=== PATIENT | male | born 2000 | race Two or more races ===

== ENCOUNTER 2022-07-12 19:16 | Emergency (ER) | payer OTHER ==
[2022-07-12 19:38] VITALS: BP 132/88
[2022-07-12] MEDS ORDERED: SULFAMETH/TRIMETH DS 800/160 MG TABLET PO STA (19:55)
--- NOTE | 2022-07-12 19:56 | ED Physician Documentation ---
PD HPI WOUND RECHECK - Stated complaint Stated Complaint: SORE ON HIP - Chief complaint Chief Complaint: Wound - Histroy obtained from History obtained from: Patient - Additional information Additional information: 21-year-old developed a pointed abscess on the left hip about 3 days ago which he popped but is still there. No fevers or chills. 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 Review of Systems Constitutional: denies: Fever, Chills Throat: reports: Reviewed and negative Respiratory: reports: Reviewed and negative PD PAST MEDICAL HISTORY - Past Medical History Respiratory: Asthma - Past Surgical History Past Surgical History: Yes HEENT: Other - Present Medications Home Medications: Ambulatory Orders Medication Instructions Recorded Confirmed Sulfamethox/Trimeth 800/160 1 each PO BID #14 tablet 07/12/22 [Bactrim Ds 800/160] - Allergies Allergies/Adverse Reactions: Allergies Allergy/AdvReac Type Severity Reaction Status Date / Time No Known Drug Allergies Allergy Verified 07/12/22 19:34 - Social History Does the pt smoke?: Yes Smoking Status: Current every day smoker Does the pt have substance abuse?: No - Immunizations Immunizations are current?: Yes - POLST Patient has POLST: No PD ED PE NORMAL - Vitals Vital signs reviewed: Yes - General General: Alert and oriented X 3, No acute distress - Derm Derm: Other (Small pointed abscess over the left hip. Mild surrounding cellulitis.) - Neuro Neuro: Alert and oriented X 3, Normal speech Results - Vitals Vitals: Vital Signs - 24 hr 07/12/22 19:35 Temperature 37.1 C Heart Rate 91 Respiratory 17 Rate Blood Pressure 132/88 H O2 Saturation 99 Oxygen O2 Source Room air Procedures - Abscess I&D (location) Left hip Preparation: Lidocaine 1%, With epi Incision: Incised with scalpel, Purulent drainage, Loculations broken, Culture obtained Other: Pt tolerated well, Dressing applied Departure - Departure Disposition: 01 Home, Self Care Clinical Impression: Abscess Condition: Good Record reviewed to determine appropriate education?: Yes Instructions: ED Abscess IandD Prescriptions: Sulfamethox/Trimeth 800/160 [Bactrim Ds 800/160] 1 each PO BID #14 tablet Comments: We are performing a wound culture, the results should be done in 48-72 hours. If antibiotic change is necessary we will call you. Return if worse in the meantime, especially if you develop increased pain, fevers, cannot keep down the medication. Otherwise follow-up with your physician in approximately 2-3 days.
== END 2022-07-12 20:06 | disposition home or self-care (01) ==
LOC: ED 19:16
DX: L02.416 Cutaneous abscess of left lower limb (principal); F17.200 Nicotine dependence, unspecified, uncomplicated
CPT/HCPCS: 10060; 87070; 87181; 87205; 99283; A9270

== ENCOUNTER 2022-09-01 13:13 | Emergency (ER) | payer OTHER ==
--- NOTE | 2022-09-01 13:24 | ED Physician Documentation ---
PD HPI SKIN - Stated complaint Stated Complaint: ABSCESS ON THE NECK - Chief complaint Chief Complaint: Wound - History obtained from History obtained from: Patient - History of Present Illness Timing - onset: How many days ago (several) Timing - duration: Days Timing - details: Gradual onset, Still present (anterior left side neck) Location: Neck Quality / character: Painful, Swelling, Draining (it was draining slightly but then stopped.) Associated symptoms: Other (denies pain with swallowling). No: Fever, N/V/D Similar symptoms before: Diagnosis ( Two drained on their own and one was incised. has had 3 other abscesses in the past 2 months - other side of neck, scalp, and lower abd wall.) Review of Systems Constitutional: denies: Fever, Chills Throat: denies: Oral lesions / sores, Sore throat Neurologic: denies: Focal weakness, Numbness PD PAST MEDICAL HISTORY - Past Medical History Respiratory: Asthma Endocrine/Autoimmune: None - Past Surgical History Past Surgical History: Yes HEENT: Other - Present Medications Home Medications: Ambulatory Orders Medication Instructions Recorded Confirmed Albuterol Sulf [Ventolin Hfa 1 - 2 puffs INH Q4HR PRN 09/01/22 09/01/22 Inhaler] Cetirizine [ZyrTEC] 10 mg PO DAILY PRN 09/01/22 09/01/22 Chlorhexidine Gluconate [Hibiclens] 15 ml TP DAILY #236 ml 09/01/22 Ibuprofen [Motrin] 600 mg PO TID PRN #25 tab 09/01/22 Mupirocin 2% Oint [Bactroban 2% 1 applic TOP TID #15 gm 09/01/22 Oint] Sulfamethox/Trimeth 800/160 1 each PO BID #14 tablet 09/01/22 [Bactrim Ds 800/160] - Allergies Allergies/Adverse Reactions: Allergies Allergy/AdvReac Type Severity Reaction Status Date / Time egg Allergy Hives Verified 09/01/22 13:21 - Social History Does the pt smoke?: Yes Smoking Status: Current every day smoker Does the pt have substance abuse?: No - Immunizations Immunizations are current?: Yes - POLST Patient has POLST: No PD ED PE NORMAL - Vitals Vital signs reviewed: Yes - General General: Alert and oriented X 3, No acute distress, Well developed/nourished - Neck Neck: Supple, no meningeal sign, Other (left anterior neck to left of cricoid area with subcut lumb with some fluctuance that is moderately tendere. It appears to almost a pointing. Redness of the skin in the area. No pulse underneath the area. ) Results - Vitals Vitals: Oxygen O2 Source Room air - Labs Labs: Microbiology 09/01/22 14:03 Wound Culture - Final Abscess Methicillin Resist S. Aureus Procedures - Abscess I&D (location) left anterior neck 2 cm Preparation: Chlorhexadine, Lidocaine 1%, With epi Incision: Incised with scalpel, Purulent drainage (but only about 2-3 ml), Irrigated, Culture obtained PD Medical Decision Making - ED course Complexity details: considered differential (recurring abscesses in different areas concerning for chronic staph carrier, so treat current MRSAS,, but also given hibiclens and mupirocin.), d/w patient Departure - Departure Disposition: 01 Home, Self Care Clinical Impression: Neck abscess Condition: Stable Record reviewed to determine appropriate education?: Yes Instructions: ED Abscess IandD Prescriptions: Sulfamethox/Trimeth 800/160 [Bactrim Ds 800/160] 1 each PO BID #14 tablet Mupirocin 2% Oint [Bactroban 2% Oint] 1 applic TOP TID #15 gm Chlorhexidine Gluconate [Hibiclens] 15 ml TP DAILY #236 ml Ibuprofen [Motrin] 600 mg PO TID PRN #25 tab PRN Reason: Pain Comments: We did get a little bit of purulence out though there is still a bit of swelling in there. It feels like the material it is a little bit thicker and I would expect it to drain through the day in combination with warm moist compresses to the area. There is a certainly good portal for the material to drain with the incision at this time. Bactrim antibiotic twice daily for the next week to help with the infection. Recheck if this is not improving quite well over the next 2 to 3 days. There may be some residual firmness and inflammation in the area that could take 2 or 3 weeks to resolve. To try to reduce the chance for repeated infections, we will try to decrease the amount of germs generally on the body surface and also when particular hiding spots like the nailbeds and nostrils. Use the chlorhexidine body wash and a septic daily with your showers and use it just from head to toe to reduce the bacteria on the surface of the skin. Use the mupirocin antibiotic ointment lightly on the fingernail beds and also with a Q-tip just very gently in the nostrils daily to reduce the chance for recurrent abscesses. Stay well-hydrated. I sent your prescriptions to [facility] in [place]. For pain and discomfort you can use ibuprofen 3 times daily for the next several days to week. Add Tylenol every 4 hours if needed. Follow-up back here if not improving well over the next several days or walk-in clinic etc. Discharge Date/Time: 09/01/22 14:16
[2022-09-01] MEDS ORDERED: SULFAMETH/TRIMETH DS 800/160 MG TABLET PO STA (13:49)
[2022-09-01] MEDS ORDERED: IBUPROFEN 600 MG TABLET PO STA (13:50)
[2022-09-01] MEDS ORDERED: ACETAMINOPHEN 325 MG TABLET PO STA (13:50)
[2022-09-01 14:17] VITALS: BP 130/80
--- NOTE | 2022-09-03 11:36 | ED Physician Documentation ---
ED Addendum - Addendum Addendum: 09/03/22 11:35 Seen by my colleague 2 days ago for a neck abscess which was drained. Started on Bactrim. Subsequent culture has grown MRSA. Sensitive to the antibiotic. I have asked nursing staff to notify patient of the MRSA finding. Also to advise chlorhexidine body wash for 2 weeks.
== END 2022-09-01 14:16 | disposition home or self-care (01) ==
LOC: ED 13:13
DX: L02.11 Cutaneous abscess of neck (principal); F17.200 Nicotine dependence, unspecified, uncomplicated
CPT/HCPCS: 10060; 87070; 87181; 87205; 99283; A9270

== ENCOUNTER 2022-10-02 04:52 | Emergency (ER) | payer OTHER ==
--- NOTE | 2022-10-02 05:09 | ED Physician Documentation ---
History of Present Illness - Stated complaint Stated Complaint: LT SIDE INFECTION - Chief complaint Chief Complaint: General - History obtained from History obtained from: Patient - Additonal information Additional information: HPI from patient. Patient complains of atraumatic focal pain swelling and redness on the left lateral aspect of his chest initially noticed 2 or 3 days ago. The discomfort a nd area of affect both slowly increased since he first noticed the lesion. He has had very similar lesions on other parts of his body for which she has come to this ER as well as other ERs; these lesions in the past have been abscesses that have required/benefit from incision and drainage. He does have 2 previous visits to this emergency department for I&D, in which the culture on both of those visits grew out MRSA. Patient denies fever. Patient says that earlier today, he applied pressure to the lesion ("squeezed it", per patient) And was able to express pus. This resulted in the lesion becoming more flat and less painful. Review of Systems Skin: reports: Lesions PD PAST MEDICAL HISTORY - Past Medical History Cardiovascular: None Respiratory: Asthma Neuro: None Endocrine/Autoimmune: None GI: None : None HEENT: None Psych: None Musculoskeletal: None Derm: Eczema - Past Surgical History Past Surgical History: Yes HEENT: Other - Present Medications Home Medications: Ambulatory Orders Medication Instructions Recorded Confirmed Albuterol Sulf [Ventolin Hfa 1 - 2 puffs INH Q4HR PRN 09/01/22 09/01/22 Inhaler] Cetirizine [ZyrTEC] 10 mg PO DAILY PRN 09/01/22 09/01/22 Chlorhexidine Gluconate [Hibiclens] 15 ml TP DAILY #236 ml 09/01/22 Ibuprofen [Motrin] 600 mg PO TID PRN #25 tab 09/01/22 Mupirocin 2% Oint [Bactroban 2% 1 applic TOP TID #15 gm 09/01/22 Oint] Sulfamethox/Trimeth 800/160 1 each PO BID #14 tablet 09/01/22 [Bactrim Ds 800/160] Doxycycline [Vibramycin] 100 mg PO BID #19 tablet 10/02/22 Ibuprofen [Motrin] 600 mg PO Q8HR PRN #20 tab 10/02/22 Oxycodone HCl/Acetaminophen 1 - 2 each PO Q6H PRN #14 tablet 10/02/22 [Percocet 5-325 mg Tablet] - Allergies Allergies/Adverse Reactions: Allergies Allergy/AdvReac Type Severity Reaction Status Date / Time egg Allergy Hives Verified 09/01/22 13:21 - Social History Does the pt smoke?: Yes Smoking Status: Current every day smoker Does the pt drink ETOH?: Yes Does the pt have substance abuse?: No - Immunizations Immunizations are current?: Yes - POLST Patient has POLST: No PD ED PE NORMAL - Vitals Vital signs reviewed: Yes - General General: Alert and oriented X 3, No acute distress, Well developed/nourished PD ED PE EXPANDED - Derm SKin visual: 1 - swelling, tenderness (mildly raised , confluent, tender erythema with palpable margins approximately 2 cm x 2.5 cm. no fluctuance nor discharge) Results - Vitals Vitals: Vital Signs - 24 hr 10/02/22 10/02/22 05:03 06:23 Temperature 36.1 C L 37.1 C Heart Rate 85 85 Respiratory 17 17 Rate Blood Pressure 144/90 H 144/83 H O2 Saturation 100 97 Oxygen O2 Source Room air PD Medical Decision Making - ED course Complexity details: d/w patient ED course: Based on the palpation of the margins of this lesion, it would be within a reasonable range for incision and drainage by its length and width, however, it feels nearly flat and this would be consistent with patient saying that he already has been able to express pus drainage from this lesion earlier today. I explained to the patient that at this time I do not think he would benefit from having incision and drainage because of how minimally raised it appears and feels on the exam. I think that p.o. antibiotics will adequately control and subsequently resolve this lesion. He is given 800 ibuprofen p.o. prior to discharge and then given a take-home pack of Percocet with instruction to use Percocet after an hour if the ibuprofen alone is not adequately controlling his discomfort. I also prescribed 600 mg tablets of ibuprofen, and Percocet and doxycycline to his pharmacy of choice. He is also given the first dose of 100 mg doxycycline p.o. prior to discharge. Return precautions are carefully discussed with the patient. I reviewed the results of the 2 previous cultures on [facility] records from previous [facility] ED visits for similar lesions; both of those cultures did indeed grow out MRSA, both of which had several sensitivities including Bactrim as well as the cyclines I am prescribing a short course of short-acting opioid pain medication for this patient. I have reviewed the patients [employer] and no concerning findings were note d. I have discussed that the opioids are for short term therapy only, and will not be refilled from the ED. Departure - Departure Disposition: 01 Home, Self Care Clinical Impression: Abscess Condition: Good Instructions: ED Staph Infec Abx Tx Only Prescriptions: Ibuprofen [Motrin] 600 mg PO Q8HR PRN #20 tab PRN Reason: Pain Oxycodone HCl/Acetaminophen [Percocet 5-325 mg Tablet] 1 - 2 each PO Q6H PRN #14 tablet PRN Reason: pain Doxycycline [Vibramycin] 100 mg PO BID #19 tablet Comments: You are given the first dose of an antibiotic (doxycycline) in the emergency department, and a prescription for this antibiotic has been electronically submitted to the [facility] pharmacy in [place]. I have also submitted prescriptions for ibuprofen and Percocet to the pharmacy. If the ibuprofen alone does not adequately control the discomfort, you can use the Percocet in addition. Do not take any Tylenol or Tylenol containing products within 6 hours of taking a dose of Percocet. It might take 1 to 2 days for the antibiotic to have a noticeable effect on the infection; if you feel your symptoms are significantly worsening and that you need to be reevaluated from an emergent standpoint, certainly you can return to the emergency department. At this time, the abscess appears a little to small to require or benefit from incision and drainage. I suspect the antibiotic alone will be sufficient to treat this episode. I am prescribing a short course of narcotic pain medication for you. These are potentially dangerous and addictive medications that should be used carefully. These medications may constipate you. Take an [id number]-[id number] stool softener (docusate) twice daily with plenty of water while taking these medications. If you go 24 hours without a bowel movement, take [id number] miralax, per package instructions. Do not drink or drive while taking these medications. If you received narcotic or sedating medications while in the emergency department, do not drive for 24 hours. Store this medication in a safe, secure place and out of reach of children. It is a violation of federal law to give or sell this medication to another person or to use in a manner other than prescribed. The ED will not refill narcotic prescriptions, including prescriptions lost or stolen. To dispose of unwanted medications: 1. [facility] at [address] in [place] has a medication drop box. They accept prescription medications (in pill form) Thursday through Thursday 9:00 a.m. to 5:00 p.m. 2. The [facility] accepts prescription medications (in pill form only) for disposal year round. Call for more information. 3. Contact the [facility] for the next [facility] sponsored prescription drug collection event. , [phone], or [phone]; Forms: Activity restrictions Discharge Date/Time: 10/02/22 06:25
[2022-10-02] MEDS ORDERED: DOXYCYCLINE 100 MG TABLET PO STA (05:57)
[2022-10-02] MEDS ORDERED: IBUPROFEN 800 MG TABLET PO STA (05:57)
[2022-10-02] MEDS ORDERED: oxyCODONE/ACET 5/325 Prepack 4 PO STA (05:57)
[2022-10-02 06:25] VITALS: BP 144/83
== END 2022-10-02 06:25 | disposition home or self-care (01) ==
LOC: ED 04:52
DX: L02.213 Cutaneous abscess of chest wall (principal); F17.200 Nicotine dependence, unspecified, uncomplicated
CPT/HCPCS: 99282; 99283; A9270